=== PATIENT | male | born 1960 | race Caucasian/White ===

== ENCOUNTER 2024-02-29 10:55 | Emergency (ER) | payer OTHER, SELFPAY ==
--- NOTE | ~2024-02-29 | XR_ITS ---
EXAMINATION: XR chest 2V DATE: 02/29/2024 13:10 INDICATION: Shortness of breath. TECHNIQUE: Frontal and lateral views of the chest were obtained. COMPARISON: Chest CT 02/29/2024 FINDINGS: There is widening of the superior mediastinum. No pleural effusion or pneumothorax. The hea rt size is normal. IMPRESSION: 1. Widening of the superior mediastinum, consistent with metastatic lymphadenopathy. Reviewed, dictated and finalized at location A. ER CERTIFIED RV TECHNICIAN IMPRESSION: 1. Widening of the superior mediastinum, consistent with metastatic lymphadenop athy.
--- NOTE | ~2024-02-29 | CT_ITS ---
EXAMINATION: CTA chest PE abdomen pel DATE: 02/29/2024 13:00 INDICATION: Shortness of breath. Weight loss. Edema. TECHNIQUE: Computed tomography (CT) pulmonary angiogram of the chest was performed with 100 mL Omnipa que-350 intravenous contrast. Additional 3D reconstructions utilizing coronal maximum intensity proje ction (MIP) were performed. CT of the abdomen and pelvis was performed with intravenous contrast util izing the same contrast bolus following a short delay. Automated exposure control and iterative recon struction technique were employed. The dose-length product was 420.31 mGy-cm. COMPARISON: None FINDINGS: Chest: Moderate emphysema. There is a a large mass at the paramediastinal right upper lobe which invades the mediastinum significantly narrowing the distal trachea and at least transiently occluding the right mainstem bronchus consistent with likely primary bronchogenic carcinoma. The mass including both the contiguous intrapulmonary and mediastinal components measures 10.7 x 10.2 x 10.2 cm. The mass also se verely narrows the superior vena cava with multiple right chest wall and paraspinal collaterals. Ther e is also occlusion of the pulmonary arteries supplying the right upper lobe and significant narrowin g of the right middle lobar pulmonary artery with filling defects in the medial lateral segmental pul monary arteries of the right middle lobe which could represent either pulmonary emboli or invasion of the pulmonary arteries with secondary pulmonary emboli in situ. No pulmonary emboli in the left lung or in the right lower lobe. There is asymmetric hyperexpansion of the right lung with volume loss in the left lung and mild atelectasis at the left lower lung which could represent sequela of right-ching ed air trapping resulting from the extrinsic mass effect upon the right mainstem bronchus. A few smal l patchy airspace opacities in the posterior segment of the right upper lobe which could represent po stobstructive atelectasis or pneumonia. Heart size is normal. No pericardial effusion. Thoracic aorta is normal in caliber with no dissection. Mild thoracic spondylosis. Abdomen/pelvis: There are a couple low-attenuation hepatic cysts the largest measuring 1 cm. Gallbladder, spleen, velasco creas, bilateral adrenal glands and kidneys are normal. No bowel obstruction. No pathologically enlar ged abdominal or pelvic lymphadenopathy appreciated however assessment is significantly limited by th e marked paucity of body wall and intra-abdominal/pelvic fat which decreases contrast between the les s avidly enhancing soft tissues including the musculature, bowels and lymph nodes. There is calcified atherosclerosis of the aorta and many of the other arteries. Moderate to severe lumbar spondylosis. Mild right and moderate left hip osteoarthritis. No suspicious lytic or blastic bone lesions. IMPRESSION: 1. 10.7 cm mass likely originating the paramediastinal right upper lobe and invading the mediastinum concerning for primary bronchogenic carcinoma which at least transiently occlude the right mainstem b ronchus with secondary postobstructive hyperexpansion of the right lung and some atelectasis versus p ostobstructive pneumonia in the right upper lobe. 2. The mass occludes the right upper lobe are pulmonary artery and there are filling defects at the r ight middle lobar and segmental pulmonary arteries could represent pulmonary emboli versus direct estela or invasion or pulmonary emboli in situ. 3. 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 4. No acute intra-abdominal/pelvic process or evident metastatic disease in the abdomen or pelvis alt phill evaluation is limited by the marked paucity of body wall and intra-abdominal/pelvic fat likely related to malignancy. Reviewed, dictated and finalized at location B. FINISHING MATERIALS PREPARER IMPRESSION: 1. 10.7 cm mass likely originating the paramediastinal right upper lobe and inv ading the mediastinum concerning for primary bronchogenic carcinoma which at le ast transiently occlude the right mainstem bronchus with secondary postobstruct nguyen hyperexpansion of the right lung and some atelectasis versus postobstructiv e pneumonia in the right upper lobe. 2. The mass occludes the right upper lobe are pulmonary artery and there are fi lling defects at the right middle lobar and segmental pulmonary arteries could represent pulmonary emboli versus direct tumor invasion or pulmonary emboli in situ. 3. 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 4. No acute intra-abdominal/pelvic process or evident metastatic disease in the abdomen or pelvis although evaluation is limited by the marked paucity of body wall and intra-abdominal/pelvic fat likely related to malignancy.
[2024-02-29 11:15] VITALS: BP 98/77; PULSE 94; RESP 18; TEMP 36.4; O2SAT 100
--- NOTE | 2024-02-29 12:04 | ECG_ITS ---
Test Date: 2024-02-29 12:19:01 Measurements Intervals [place] Rate: 79 P: 91 [place]: 152 QRS: 108 QRSD: 90 T: 89 QT: 371 QTc: 427 Interpretive Statements SINUS RHYTHM RIGHT AXIS DEVIATION LOW QRS VOLTAGE IN PRECORDIAL LEADS CONSIDER ANTEROSEPTAL INFARCT, AGE INDETERMINATE HIGH LATERAL INFARCT, AGE INDETERMINATE BASELINE ARTIFACT- II, III, AVF, V3 ABNORMAL ECG No previous ECG available for comparison Electronically Signed On 02-29-2024 12:25:29 INTERACTIVE DIGITAL MEDIA SPECIALIST by Manny Maharaj D.O.
[2024-02-29 12:13] VITALS: O2SAT 100
[2024-02-29 12:20] LABS: Basophils Percent Auto 0.3 % (0.2-1.2); Eosinophils Percent Auto 0.2 % (0-4.4); Hematocrit 43.1 % (42.0-52.0); Hemoglobin 13.6 g/dL (14.0-18.0); Immature Granulocyte Absolute 0.03 K/mm3 (0.00-0.031); Immature Granulocyte Percent A 0.5 % (0-0.5); Lymphocytes Absolute Auto 1.42 K/mm3 (0.9-3.2); Lymphocytes Percent Auto 21.5 % (18.3-44.2); Mean Corpuscular HGB Conc 31.6 g/dl (32-36); Mean Corpuscular Hemoglobin 27.5 pg (26-34); Mean Corpuscular Volume 87.2 fl (80-100); Mean Platelet Volume 9.5 fl (7.4-10.4); Monocytes Absolute Auto 0.3 K/mm3 (0.1-0.6); Monocytes Percent Auto 4.1 % (2.6-8.5); Neutrophils Absolute Auto 4.9 K/mm3 (1.3-6.7); Neutrophils Percent Auto 73.4 % (45.5-73.1); Platelet Count Result 283 k/mm3 (150-375); Red Blood Count 4.94 M/mm3 (4.6-6.20); Red Cell Distribution Width 16.5 % (11.5-14.5); White Blood Count 6.6 K/mm3 (4.5-10.0)
[2024-02-29 12:29] LABS: Lactic Acid Reflex 2.9 mmol/L (0.7-2.0)
[2024-02-29 12:30] LABS: Alanine Aminotransferase 52 U/L (6-50); Albumin Level 4.3 g/dL (3.5-5.1); Alkaline Phosphatase 128 U/L (38-126); Anion Gap 6 mmol/L (4-12); Aspartate Amino Transferase 73 U/L (17-59); Bilirubin,Total 0.6 mg/dL (0.2-1.3); Blood Urea Nitrogen 22 mg/dL (9-20); Calcium 9.4 mg/dL (8.4-10.2); Carbon Dioxide 35 mmol/L (22-30); Chloride 100 mmol/L (98-107); Estimated CRCL calculation 60 ml/min; Estimated Glomerular Filt Rate > 60; Glucose 141 mg/dL (65-110); Potassium 3.9 mmol/L (3.4-5.0); Sodium 141 mmol/L (137-145)
[2024-02-29 12:31] LABS: INR 1.1; Prothrombin Time 14.4 Seconds (11.1-14.7)
[2024-02-29 12:41] LABS: NT Pro B Type Natriuretic Pept 266 pg/mL (19.9-100); Troponin I < 0.012 ng/mL (0.000-0.034)
[2024-02-29 13:32] VITALS: BP 100/76; PULSE 85; RESP 18; O2SAT 100
[2024-02-29 14:12] VITALS: BP 112/94; PULSE 85; RESP 18; O2SAT 100
--- NOTE | 2024-02-29 14:35 | ED.GENADULT ---
HPI - General Adult General Chief complaint: Shortness of Breath/Dyspnea Stated complaint: sob/BLE swelling Time Seen by Provider: 02/29/24 12:06 History of Present Illness HPI narrative: patient is 62-year-old gentleman who presents emergency department with chief complaint edema and weight loss. Patient reports that over the last 10 months he has had about a 60 lb weight loss reported that he has noticed that his legs started swelling up and then recently noticed that his neck and above started swelling up the patient states he felt a little short of breath today was hypoxic with a room air pulse ox at 89% upon arrival to the emergency department patient reports he does feels weak and exhausted. Related Data Allergies Allergy/AdvReac Type Severity Reaction Status Date / Time aspirin AdvReac Unknown NAUSEA/VOMI Verified 02/29/24 11:20 TING BEE STING Allergy Unknown THROAT Uncoded 02/29/24 11:20 SWELLING Review of Systems Review of Systems: A 10 system review of systems was completed on the patient and is negative except for what is stated in the HPI. Nursing and ancillary documentation was reviewed. Exam Narrative: GENERAL: Well-appearing, well-nourished, and in no acute distress. HEAD: Normocephalic, atraumatic. EYES: PERRLA and EOMI. ENT: Nares clear, no rhinorrhea or epistaxis. Mucous membranes moist. NECK: Supple. edema present above the neck CHEST: Clear to auscultation. No respiratory distress. HEART: Regular rate and rhythm. No murmur heard. Normal peripheral pulses. ABDOMEN: Soft, nontender, nondistended, normal active bowel sounds. EXTREMITIES: Normal range of motion. 2+ edema. SKIN: Warm, dry, no rash. NEURO: No focal deficits. Alert and oriented x3. PSYCH: Normal mood and affect. Course Vital Signs Vital signs: Vital Signs Temperature 36.4 C L 02/29/24 11:15 Pulse Rate 94 02/29/24 11:15 Respiratory Rate 18 02/29/24 11:15 Blood Pressure 98/77 L 02/29/24 11:15 Pulse Oximetry 100 02/29/24 11:15 Oxygen Delivery Nasal Cannula 02/29/24 11:15 Oxygen Flow Rate 2 02/29/24 11:15 Temperature 36.4 C L 02/29/24 11:15 Pulse Rate 85 02/29/24 14:12 Respiratory Rate 18 02/29/24 14:12 Blood Pressure 112/94 H 02/29/24 14:12 Pulse Oximetry 100 02/29/24 14:12 Oxygen Delivery Nasal Cannula 02/29/24 12:13 Oxygen Flow Rate 2 02/29/24 12:13 Medical Decision Making MDM Narrative Medical decision making narrative: differential diagnosis includes superior vena cava syndrome, intrathoracic mass, pulmonary embolism high laboratory studies were obtained on the patient which showed a mildly elevated lactate mildly elevated liver enzymes. 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 Mercado at [facility] Vital Signs Vital Signs: Vital Signs Temperature 36.4 C L 02/29/24 11:15 Pulse Rate 94 02/29/24 11:15 Respiratory Rate 18 02/29/24 11:15 Blood Pressure 98/77 L 02/29/24 11:15 Pulse Oximetry 100 02/29/24 11:15 Oxygen Delivery Nasal Cannula 02/29/24 11:15 Oxygen Flow Rate 2 02/29/24 11:15 Temperature 36.4 C L 02/29/24 11:15 Pulse Rate 85 02/29/24 14:12 Respiratory Rate 18 02/29/24 14:12 Blood Pressure 112/94 H 02/29/24 14:12 Pulse Oximetry 100 02/29/24 14:12 Oxygen Delivery Nasal Cannula 02/29/24 12:13 Oxygen Flow Rate 2 02/29/24 12:13 Lab Data 02/29/24 12:08 02/29/24 12:08 Labs: Lab Results 02/29/24 Range/Units 12:08 WBC 6.6 (4.5-10.0) K/mm3 RBC 4.94 (4.6-6.20) M/mm3 Hgb 13.6 L (14.0-18.0) g/dL Hct 43.1 (42.0-52.0) % MCV 87.2 (80-100) fl MCH 27.5 (26-34) pg MCHC 31.6 L (32-36) g/dl RDW 16.5 H (11.5-14.5) % Plt Count 283 (150-375) k/mm3 MPV 9.5 (7.4-10.4) fl Immature Gran % (Auto) 0.5 (0-0.5) % Neut % (Auto) 73.4 H (45.5-73.1) % Lymph % (Auto) 21.5 (18.3-44.2) % [place] % (Auto) 4.1 (2.6-8.5) % Eos % (Auto) 0.2 (0-4.4) % Baso % (Auto) 0.3 (0.2-1.2) % Lymph # (Auto) 1.42 (0.9-3.2) K/mm3 [place] # (Auto) 0.3 (0.1-0.6) K/mm3 Eos # (Auto) 0.0 (0-0.3) K/mm3 Baso # (Auto) 0.0 (0.0-0.1) K/mm3 Abs Immat Gran (auto) 0.03 (0.00-0.031) K/mm3 Absolute Neuts (auto) 4.9 (1.3-6.7) K/mm3 Absolute Nucleated RBC 0.000 (0.0-0.012) K/mm3 Nucleated RBC % 0.0 (0.0-0.2) % PT 14.4 (11.1-14.7) Seconds INR 1.1 APTT 25.0 (22.3-36.8) Seconds Sodium 141 (137-145) mmol/L Potassium 3.9 (3.4-5.0) mmol/L Chloride 100 (98-107) mmol/L Carbon Dioxide 35 H (22-30) mmol/L Anion Gap 6 (4-12) mmol/L BUN 22 H (9-20) mg/dL Creatinine 0.80 (0.7-1.3) mg/dL Estim Creat Clear Calc 60 ml/min Estimated GFR > 60 (59 - ) Glucose 141 H (65-110) mg/dL Lactic Acid 2.9 H (0.7-2.0) mmol/L Calcium 9.4 (8.4-10.2) mg/dL Total Bilirubin 0.6 (0.2-1.3) mg/dL AST 73 H (17-59) U/L ALT 52 H (6-50) U/L Alkaline Phosphatase 128 H (38-126) U/L Troponin I < 0.012 (0.000-0.034) ng/mL NT-Pro-B Natriuret Pep 266 H (19.9-100) pg/mL Total Protein 8.0 (6.3-8.2) g/dL Albumin 4.3 (3.5-5.1) g/dL Discharge Plan 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
[2024-02-29 15:15] LABS: Reflex Lactic Acid Yes or No Add Lactic
[2024-02-29] MEDS: HEPARIN SOD/D5W 100 UNITS/ML 25,000 UNITS/250 ML BAG 9 UNITS IV CONT (15:21)
[2024-02-29] MEDS: HEPARIN SODIUM 5,000 UNITS/ML VIAL 4000 UNITS IV PUSH (15:22)
--- NOTE | 2024-02-29 15:49 | PC.NURSE ---
-This RN attempted to get 2nd peripheral IV but was unsuccessful. 2nd COOKER CHIP unsuccessful. Ultrasound qualified RN to bedside for additional access. - Family at bedside and requesting an update. MD Aceves at bedside providing update. - This RN attempted to call [facility] for report. Melissa RN at [facility] states they don't accept pt. with a lactic acid >2. Pt. lactic is 2.9. Electrical Engineering Drafting Officer at [facility] states they will still accept pt. if lactic repeat is <2.9. Md Aceves and GERRY Mulligan notified. Lactic to be redrawn.
--- NOTE | 2024-02-29 16:08 | PC.NURSE ---
Repeat lactic acid sent down to lab.
--- NOTE | 2024-02-29 16:23 | PC.NURSE ---
Melissa RN notified of pt[facility]actic[facility]. Report given, all questions answered. GERRY Mulligan updated and transport to be set up. Hospital transfer info below: [facility] Bed [address] Phone number: [phone]
[2024-02-29 17:16] VITALS: BP 92/78; PULSE 78; RESP 16; O2SAT 100
--- NOTE | 2024-02-29 18:00 | PC.NURSE ---
Report given to [facility]. All questions answered.
[2024-02-29 18:01] VITALS: BP 103/76; PULSE 91; RESP 16; O2SAT 100
--- NOTE | 2024-02-29 22:01 | PC.NURSE ---
Per [place] guidance secretary, Sophia ELE called [place] ED after pt. arrival to [facility] asking for additional information about the pt. Message given to this RN. This RN called phone number given and spoke with pt. current nurse at [facility], who verbalized the MD had difficulty with uploading the CT with disc provided. CT images pushed to Sophia. Sophia RN to call back with additional issues.
--- NOTE | 2024-02-29 22:30 | PC.NURSE ---
Sophia called back stating they can see the imagine but needed the radiology reads. CT and x-ray read faxed to number provided.
== END 2024-02-29 18:05 | disposition short-term general hospital (02) ==
PROVIDERS: Emergency Medicine; Emergency Provider Emergency Medicine
DX: I87.1 Compression of vein (principal); J98.59 Other diseases of mediastinum, not elsewhere classified; R94.31 Abnormal electrocardiogram [ECG] [EKG]
CPT/HCPCS: 36415; 71046; 71275; 74177; 80053; 83605; 83880; 84484; 85025; 85610; 85730; 87040; 93005; 96365; 96366; 99285; J1644; Q9967

== ENCOUNTER 2024-03-13 11:51 | Emergency (ER) | payer OTHER, SELFPAY ==
[2024-03-13] VITALS (7 sets, daily range): BP systolic 103–115; BP diastolic 76–91; PULSE 101–128; RESP 16–23; TEMP 36.8–36.9; O2SAT 94–100
--- NOTE | ~2024-03-13 | CT_ITS ---
EXAMINATION: CTA chest PE protocol DATE: 03/13/2024 14:20 INDICATION: New lung cancer. Worsening dyspnea today TECHNIQUE: Computed tomography angiography (CTA) of the chest was performed with 100 mL Omnipaque-350 intravenous contrast timed to evaluate the pulmonary arteries. Coronal maximum intensity projection 3D-reconstructions were created by the technologist. Automated exposure control and iterative reconst ruction technique were employed. Exam dose: 307.50 mGy-cm total exam DLP. COMPARISON: 02/29/2024 CTA chest abdomen pelvis 02/29/2024 2 view chest FINDINGS: There is suboptimal contrast opacification of the pulmonary arteries. No central pulmonary embolus is evident; examination is nondiagnostic for more peripheral pulmonary arteries. Again noted is a huge right superior mediastinal, paratracheal, subcarinal and right hilar mass lesio n. Since 02/29/2024 there is placement of a tracheal and bilateral proximal mainstem bronchus stent. There is almost complete occlusion of the right mainstem bronchus at the distal aspect of the right m ainstem bronchus stent, in addition to invasion and prominent narrowing of the right upper lobe bronc hi, severe stricture at the intermediate bronchus and origin of the middle lobe and right lower lobe bronchus. There is mild postobstructive right upper lobe and to a greater extent right lower lobe infiltrate. There are moderate bilateral pleural effusions with compressive atelectasis at both lower lobes, righ t greater than left. There is invasion and occlusion of the right upper lobe pulmonary arteries. 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 Moderate bilateral pleural effusions with compressive atelectasis of both lower lobes, right greater than left. 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 Interval placement of a tracheal/bilateral mainstem bronchus stent since 02/25/2024. 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 Reviewed, dictated and finalized at [facility] 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 Interval placement of a tracheal/bilateral mainstem bronchus stent since 024. There is nearly complete occlusion of the right mainstem bronchus distal t o the stent, with severe narrowing of the right upper lobe bronchus, intermedia te bronchus and proximal right middle and lower lobe bronchi Occlusion of the right upper lobe pulmonary vessels due to malignant mass invas ion Moderate bilateral pleural effusions with compressive atelectasis of both lower lobes, right greater than left There is some postobstructive right upper lobe and right lower lobe infiltrate Moderate emphysema
--- NOTE | 2024-03-13 12:40 | ECG_ITS ---
Test Date: 2024-03-13 12:08:20 Measurements Intervals [place] Rate: 105 P: 83 [place]: 148 QRS: 83 QRSD: 88 T: 88 QT: 318 QTc: 421 Interpretive Statements SINUS TACHYCARDIA WITH ATRIAL AND VENTRICULAR PREMATURE COMPLEXES LOW QRS VOLTAGE IN PRECORDIAL LEADS CANNOT R/O SEPTAL INFARCT, AGE INDETERMINATE BORDERLINE T WAVE ABNORMALITY- ANTEROLAT/HIGH LAT LEADS BASELINE ARTIFACT- I, AVR, V5-V6 ABNORMAL ECG Compared to ECG 02/29/2024 12:19:01 HEART RATE HAS INCREASED Electronically Signed On 03-13-2024 18:44:16 DAYCARE MANAGER by Manny Maharaj D.O.
--- NOTE | 2024-03-13 12:41 | ED_ITS ---
HPI - SOB/Dyspnea General Chief Complaint: Shortness of Breath/Dyspnea Stated Complaint: SOB & Weakness Time Seen by Provider: 03/13/24 11:59 History of Present Illness HPI Narrative: 64-year-old man with a recent lung cancer diagnosis presenting with worsening dyspnea. States that he was here a couple weeks ago and a tumor in his lungs he was found. He was transferred to [facility] where he started radiation therapy. States that they also put in a stent for compression of some of his vessels. He also has pulmonary emboli and has been on blood thinners. States that when he was discharged yesterday and they gave him an oxygen tank but they did not teach him how to use it. States he was not able to use it and has been feeling increasingly short of breath since getting home. States he was also getting breathing treatments while at [facility] which seemed to help a lot but he was not sent home with this either. No pain. Complains of congestion. Related Data Allergies Allergy/AdvReac Type Severity Reaction Status Date / Time aspirin AdvReac Unknown NAUSEA/VOMI Verified 02/29/24 11:20 TING BEE STING Allergy Unknown THROAT Uncoded 02/29/24 11:20 SWELLING Review of Systems Review of Systems: All systems reviewed & are unremarkable except as noted in HPI and below Exam Narrative: GENERAL: Ill-appearing, no acute distress, pleasant cooperative HEAD: Normocephalic, atraumatic. EYES: PERRLA and EOMI. ENT: Mucous membranes moist. NECK: Supple. Edema of bilateral upper extremities into the neck and face CHEST: Coarse breath sounds bilaterally with scattered wheezing, on 3 L nasal cannula with sats in the mid 90s. HEART: Tachycardic, regular rhythm ABDOMEN: Soft, nontender, nondistended EXTREMITIES: Normal range of motion SKIN: Warm, dry, no rash. NEURO: No focal deficits. Alert and oriented x3. PSYCH: Normal mood and affect. Course Vital Signs Vital signs: Vital Signs Temperature 98.5 F 03/13/24 12:20 Pulse Rate 111 H 03/13/24 12:20 Respiratory Rate 23 H 03/13/24 12:20 Blood Pressure 115/91 H 03/13/24 12:20 Pulse Oximetry 97 03/13/24 12:20 Oxygen Delivery Nasal Cannula 03/13/24 12:20 Oxygen Flow Rate 3 03/13/24 12:20 Temperature 98.4 F 03/13/24 18:57 Pulse Rate 101 H 03/13/24 18:57 Respiratory Rate 17 03/13/24 18:57 Blood Pressure 103/88 03/13/24 18:57 Pulse Oximetry 94 03/13/24 18:57 Oxygen Delivery Nasal Cannula 03/13/24 12:32 Oxygen Flow Rate 3 03/13/24 12:32 MDM - SOB/Dyspnea MDM Narrative Medical decision making narrative: 64-year-old male presenting with worsening dyspnea in the setting of recent lung cancer, pulmonary emboli, superior vena cava syndrome diagnoses. Patient is saturating in the mid 90s on 3 L nasal cannula. Tachycardic. EKG per my interpretation shows sinus tachycardia, no ST elevations or depressions. Blood work with a hemoglobin of 8.9. CTA of the chest shows no central pulmonary embolus. There is worsening of the compression of various structures. There is now a tracheal stent in place. There is also a postobstructive pneumonia. Broad-spectrum antibiotics have been initiated an IV fluids are ongoing. I spoke with [facility] who states that the patient actually left against medical advice yesterday despite the fact that he was requiring 15 L of oxygen with exertion and his heart rate was in the 140s. Feel the patient really needs to be back at [facility] as our facility does not have the same capabilities. The patient is agreeable with this and I explained the importance of medical compliance given the severity of his illness. Spoke with the hospitalist at [facility] who has accepted the patient for transfer. Accepting physician is Dr. Dyson. Differential Diagnosis Differential diagnosis: Likely acute exacerbation of chronic obstructive airways disease, congestive heart failure, community acquired pneumonia, pulmonary embolism and other (lung cancer, SVC) Medical Records Attestation: I reviewed the patient's medical records. Lab Data Attestation: I reviewed the patient's lab results. 03/13/24 12:56 03/13/24 12:56 Labs: Lab Results 03/13/24 03/13/24 03/13/24 Range/Units 12:56 15:53 17:22 WBC 7.2 (4.5-10.0) K/mm3 RBC 3.20 L (4.6-6.20) M/mm3 Hgb 8.9 L D (14.0-18.0) g/dL Hct 27.4 L (42.0-52.0) % MCV 85.6 (80-100) fl MCH 27.8 (26-34) pg MCHC 32.5 (32-36) g/dl RDW 16.8 H (11.5-14.5) % Plt Count 398 H (150-375) k/mm3 MPV 9.3 (7.4-10.4) fl Immature Gran % (Auto) 0.8 H (0-0.5) % Neut % (Auto) 86.0 H (45.5-73.1) % Lymph % (Auto) 7.0 L (18.3-44.2) % [place] % (Auto) 5.9 (2.6-8.5) % Eos % (Auto) 0.0 (0-4.4) % Baso % (Auto) 0.3 (0.2-1.2) % Lymph # (Auto) 0.50 L (0.9-3.2) K/mm3 [place] # (Auto) 0.4 (0.1-0.6) K/mm3 Eos # (Auto) 0.0 (0-0.3) K/mm3 Baso # (Auto) 0.0 (0.0-0.1) K/mm3 Abs Immat Gran (auto) 0.06 H (0.00-0.031) K/mm3 Absolute Neuts (auto) 6.2 (1.3-6.7) K/mm3 Absolute Nucleated RBC 0.000 (0.0-0.012) K/mm3 Nucleated RBC % 0.0 (0.0-0.2) % PT 13.7 (11.1-14.7) Seconds INR 1.0 APTT 27.8 (22.3-36.8) Seconds Sodium 138 (137-145) mmol/L Potassium 4.1 (3.4-5.0) mmol/L Chloride 99 (98-107) mmol/L Carbon Dioxide 34 H (22-30) mmol/L Anion Gap 5 (4-12) mmol/L BUN 32 H D (9-20) mg/dL Creatinine 0.70 (0.7-1.3) mg/dL Estim Creat Clear Calc 132 ml/min Estimated GFR > 60 (59 - ) Glucose 107 (65-110) mg/dL Lactic Acid 2.1 H (0.7-2.0) mmol/L Calcium 8.7 (8.4-10.2) mg/dL Magnesium 2.1 (1.6-2.3) mg/dL Total Bilirubin 0.7 (0.2-1.3) mg/dL AST 41 (17-59) U/L ALT 24 (6-50) U/L Alkaline Phosphatase 95 (38-126) U/L Troponin I < 0.012 < 0.012 (0.000-0.034) ng/mL NT-Pro-B Natriuret Pep 444 H (19.9-100) pg/mL Total Protein 7.0 (6.3-8.2) g/dL Albumin 3.4 L (3.5-5.1) g/dL Nasal MRSA (PCR) Not detected (NOT DETECTE) Influenza A (RT-PCR) Negative (Negative) Influenza B (RT-PCR) Negative (Negative) RSV (RT-PCR) Negative (Negative) SARS-CoV-2 RNA (RT-PCR) Negative (Negative) 03/13/24 Range/Units 18:00 WBC (4.5-10.0) K/mm3 RBC (4.6-6.20) M/mm3 Hgb (14.0-18.0) g/dL Hct (42.0-52.0) % MCV (80-100) fl MCH (26-34) pg MCHC (32-36) g/dl RDW (11.5-14.5) % Plt Count (150-375) k/mm3 MPV (7.4-10.4) fl Immature Gran % (Auto) (0-0.5) % Neut % (Auto) (45.5-73.1) % Lymph % (Auto) (18.3-44.2) % [place] % (Auto) (2.6-8.5) % Eos % (Auto) (0-4.4) % Baso % (Auto) (0.2-1.2) % Lymph # (Auto) (0.9-3.2) K/mm3 [place] # (Auto) (0.1-0.6) K/mm3 Eos # (Auto) (0-0.3) K/mm3 Baso # (Auto) (0.0-0.1) K/mm3 Abs Immat Gran (auto) (0.00-0.031) K/mm3 Absolute Neuts (auto) (1.3-6.7) K/mm3 Absolute Nucleated RBC (0.0-0.012) K/mm3 Nucleated RBC % (0.0-0.2) % PT (11.1-14.7) Seconds INR APTT (22.3-36.8) Seconds Sodium (137-145) mmol/L Potassium (3.4-5.0) mmol/L Chloride (98-107) mmol/L Carbon Dioxide (22-30) mmol/L Anion Gap (4-12) mmol/L BUN (9-20) mg/dL Creatinine (0.7-1.3) mg/dL Estim Creat Clear Calc ml/min Estimated GFR (59 - ) Glucose (65-110) mg/dL Lactic Acid 1.7 (0.7-2.0) mmol/L Calcium (8.4-10.2) mg/dL Magnesium (1.6-2.3) mg/dL Total Bilirubin (0.2-1.3) mg/dL AST (17-59) U/L ALT (6-50) U/L Alkaline Phosphatase (38-126) U/L Troponin I (0.000-0.034) ng/mL NT-Pro-B Natriuret Pep (19.9-100) pg/mL Total Protein (6.3-8.2) g/dL Albumin (3.5-5.1) g/dL Nasal MRSA (PCR) (NOT DETECTE) Influenza A (RT-PCR) (Negative) Influenza B (RT-PCR) (Negative) RSV (RT-PCR) (Negative) SARS-CoV-2 RNA (RT-PCR) (Negative) Imaging Data Radiologist's impression: ITS Impressions Chest CTA 03/13/24 14:25 IMPRESSION: No central pulmonary embolus is identified; nondiagnostic contrast enhancement of the more peripheral pulmonary emboli There is suggestion of intervening complete occlusion of the superior vena cava by the malignant mass since 02/29/2024, with collateral flow to the inferior vena cava, with associated edema of the chest and neck. Interval placement of a tracheal/bilateral mainstem bronchus stent since 02/25/2024. There is nearly complete occlusion of the right mainstem bronchus distal to the stent, with severe narrowing of the right upper lobe bronchus, intermediate bronchus and proximal right middle and lower lobe bronchi Occlusion of the right upper lobe pulmonary vessels due to malignant mass invasion Moderate bilateral pleural effusions with compressive atelectasis of both lower lobes, right greater than left There is some postobstructive right upper lobe and right lower lobe infiltrate Moderate emphysema Critical Care Time Critical Care Time Critical Care Time: Yes Total Critical Care Time: 35 Discharge Plan Discharge Clinical Impression: Acute on chronic hypoxic respiratory failure, Lung mass, Postobstructive pneumonia, SVC syndrome Patient Disposition: Acute Care Hospital Condition: Serious Follow-up/Referrals: UNKNOWN,DOCTOR [Primary Care Provider] -
[2024-03-13] MEDS: ALBUTEROL SULFATE NEB 2.5 MG/3 ML INH 10 MG INHALATION (12:49)
[2024-03-13] MEDS: IPRATROPIUM BR 0.02% INH SOLN 0.5 MG/2.5 ML VIAL INHALATION (12:49)
[2024-03-13 13:02] LABS: Basophils Percent Auto 0.3 % (0.2-1.2); Hematocrit 27.4 % (42.0-52.0); Hemoglobin 8.9 g/dL (14.0-18.0); Immature Granulocyte Absolute 0.06 K/mm3 (0.00-0.031); Immature Granulocyte Percent A 0.8 % (0-0.5); Mean Corpuscular HGB Conc 32.5 g/dl (32-36); Mean Corpuscular Hemoglobin 27.8 pg (26-34); Mean Corpuscular Volume 85.6 fl (80-100); Mean Platelet Volume 9.3 fl (7.4-10.4); Monocytes Absolute Auto 0.4 K/mm3 (0.1-0.6); Monocytes Percent Auto 5.9 % (2.6-8.5); Neutrophils Absolute Auto 6.2 K/mm3 (1.3-6.7); Platelet Count Result 398 k/mm3 (150-375); Red Cell Distribution Width 16.8 % (11.5-14.5); White Blood Count 7.2 K/mm3 (4.5-10.0)
[2024-03-13] MEDS: SODIUM CHLORIDE 0.9% IV 1,000 ML 999 ML IV CONT (13:03)
[2024-03-13 13:12] LABS: Prothrombin Time 13.7 Seconds (11.1-14.7)
[2024-03-13 13:13] LABS: Alanine Aminotransferase 24 U/L (6-50); Albumin Level 3.4 g/dL (3.5-5.1); Alkaline Phosphatase 95 U/L (38-126); Anion Gap 5 mmol/L (4-12); Aspartate Amino Transferase 41 U/L (17-59); Bilirubin,Total 0.7 mg/dL (0.2-1.3); Blood Urea Nitrogen 32 mg/dL (9-20); Calcium 8.7 mg/dL (8.4-10.2); Carbon Dioxide 34 mmol/L (22-30); Chloride 99 mmol/L (98-107); Estimated CRCL calculation 132 ml/min; Estimated Glomerular Filt Rate > 60; Glucose 107 mg/dL (65-110); Magnesium 2.1 mg/dL (1.6-2.3); Partial Thromboplastin Time 27.8 Seconds (22.3-36.8); Potassium 4.1 mmol/L (3.4-5.0); Sodium 138 mmol/L (137-145)
[2024-03-13 13:14] LABS: Lactic Acid Reflex 2.1 mmol/L (0.7-2.0)
[2024-03-13 13:25] LABS: NT Pro B Type Natriuretic Pept 444 pg/mL (19.9-100); Troponin I < 0.012 ng/mL (0.000-0.034)
[2024-03-13 13:39] LABS: Influenza A QL RT-PCR Negative (Negative); Influenza B QL RT-PCR Negative (Negative); RSV RNA, RT-PCR Negative (Negative); SARS-CoV-2 RNA PCR Negative (Negative)
--- NOTE | 2024-03-13 15:45 | ECG_ITS ---
Test Date: 2024-03-13 15:48:17 Measurements Intervals [place] Rate: 106 P: 90 [place]: 142 QRS: 82 QRSD: 89 T: 92 QT: 357 QTc: 476 Interpretive Statements SINUS TACHYCARDIA WITH FREQUENT ATRIAL PREMATURE COMPLEXES LOW QRS VOLTAGE IN PRECORDIAL LEADS CANNOT R/O SEPTAL INFARCT, AGE INDETERMINATE BORDERLINE T WAVE ABNORMALITY- DIFFUSE LEADS ABNORMAL ECG Compared to ECG 03/13/2024 12:08:20 No significant changes Electronically Signed On 03-13-2024 18:45:24 SURVEILLANCE TECHNICIAN by Manny Maharaj D.O.
[2024-03-13 16:00] LABS: Reflex Lactic Acid Yes or No Add Lactic
[2024-03-13 16:20] LABS: Troponin I < 0.012 ng/mL (0.000-0.034)
[2024-03-13 18:15] LABS: Lactic Acid 1.7 mmol/L (0.7-2.0)
[2024-03-13 18:37] LABS: MRSA (PCR) NOT DETECTED (NOT DETECTE)
[2024-03-13] MEDS: PIPERACILLIN/TAZ 4.5G/NS 100ML 4.5 GM/100 ML BAG IVPB (18:37)
== END 2024-03-13 19:20 | disposition short-term general hospital (02) ==
PROVIDERS: Emergency Provider Emergency Medicine
DX: J96.21 Acute and chronic respiratory failure with hypoxia (principal); C34.90 Malignant neoplasm of unspecified part of unspecified bronchus or lung; J18.9 Pneumonia, unspecified organism; I87.1 Compression of vein; Z20.822 Contact with and (suspected) exposure to COVID-19; J43.9 Emphysema, unspecified; R00.0 Tachycardia, unspecified; I49.3 Ventricular premature depolarization; I49.1 Atrial premature depolarization; R94.31 Abnormal electrocardiogram [ECG] [EKG]
CPT/HCPCS: 36415; 71275; 80053; 83605; 83735; 83880; 84484; 85025; 85610; 85730; 87040; 87637; 87641; 93005; 94640; 96361; 96365; 99291; J2543; J7030; Q9967